=== PATIENT | male | born 1995 | race Caucasian/White ===

== ENCOUNTER 2017-07-15 16:42 | Emergency (ER) | payer OTHER ==
[2017-07-15 16:47] VITALS: BP 147/80
[2017-07-15] MEDS ORDERED: ONDANSETRON 4 MG TAB.RAPDIS PO ONE (16:56)
[2017-07-15] MEDS ORDERED: OXYCODONE-ACETAMINOPHEN 5-325 MG TABLET PO ONE (16:56)
--- NOTE | 2017-07-15 16:57 | ER Document Report ---
ED Medical Screen (RME) - General Chief Complaint: Crush Injury Stated Complaint: FINGER INJURY Time Seen by Provider: 07/15/17 16:52 Notes: 22-year-old male patient had his right finger tip smashed between free weights while lifting weights with a friend. Fingertip is split open. I have greeted and performed a rapid initial assessment of this patient. A comprehensive ED assessment and evaluation of the patient, analysis of test results and completion of the medical decision making process will be conducted by additional ED providers. TRAVEL OUTSIDE OF THE [place] IN LAST 30 DAYS: No - Related Data Allergies/Adverse Reactions: No Known Allergies Allergy (Verified 07/15/17 16:43) Physical Exam - Vital signs Vitals: Temp Pulse Resp BP Pulse Ox 97.7 F 81 16 147/80 H 100 07/15/17 16:46 07/15/17 16:46 07/15/17 16:46 07/15/17 16:46 07/15/17 16:46 Course - Vital Signs Vital signs: Temp Pulse Resp BP Pulse Ox 97.7 F 81 16 147/80 H 100 07/15/17 16:46 07/15/17 16:46 07/15/17 16:46 07/15/17 16:46 07/15/17 16:46
--- NOTE | 2017-07-15 17:18 | RADIOLOGY REPORT (SQ) ---
EXAM DESCRIPTION: FINGER RIGHT COMPLETED DATE/TIME: 07/15/2017 5:10 pm REASON FOR STUDY: crush injury COMPARISON: None. NUMBER OF VIEWS: Three views. TECHNIQUE: AP, lateral, and oblique images acquired of the right third finger. LIMITATIONS: None. FINDINGS: MINERALIZATION: Normal. BONES: There is a comminuted fracture of the distal phalanx of the 3rd digit. SOFT TISSUES: No soft tissue swelling. No foreign body. OTHER: No other significant finding. IMPRESSION: Comminuted fracture of the 3rd distal phalanx. COMMENT: SITE OF TRAUMA/COMPLAINT MARKED/STAMP COMPLETED: Yes TECHNICAL DOCUMENTATION: JOB ID: [id number] [employer]- All Rights Reserved Reading location - IP/workstation name: [email or web address]
[2017-07-15] MEDS ORDERED: LIDOCAINE 1% INJ-PF (10 MG/ML) 30 ML SDV INJ ONE (17:31)
[2017-07-15] MEDS ORDERED: CEPHALEXIN 500 MG CAPSULE PO ONE (17:33)
--- NOTE | 2017-07-15 17:34 | ER Document Report ---
ED General - General Chief Complaint: Crush Injury Stated Complaint: FINGER INJURY Time Seen by Provider: 07/15/17 16:52 Notes: 22-year-old male to the emergency department after dropping a weight at the gym on this middle finger on his right dominant hand. Open laceration to the distal tip of the right third digit on the hand. Significant amount of pain. Moderate amount of bleeding. No other injuries. Date on shots and immunizations including tetanus. TRAVEL OUTSIDE OF THE [place] IN LAST 30 DAYS: No - HPI Onset: Just prior to arrival Onset/Duration: Sudden Quality of pain: Throbbing Severity: Moderate Pain Level: 3 Associated symptoms: None - Related Data Allergies/Adverse Reactions: No Known Allergies Allergy (Verified 07/15/17 16:43) Past Medical History - General Information source: Patient - Social History Smoking Status: Never Smoker Chew tobacco use (# tins/day): No Frequency of alcohol use: None Drug Abuse: None Lives with: Alone Family History: Reviewed & Not Pertinent Patient has suicidal ideation: No Patient has homicidal ideation: No Renal/ Medical History: Denies: Hx Peritoneal Dialysis Review of Systems - Review of Systems Constitutional: No symptoms reported EENT: No symptoms reported Cardiovascular: No symptoms reported Respiratory: No symptoms reported Gastrointestinal: No symptoms reported Musculoskeletal: See HPI, Other - Finger pain, laceration, throbbing Skin: Other - Laceration to the third digit on the right hand with small amount of bleeding. Physical Exam - Vital signs Vitals: Temp Pulse Resp BP Pulse Ox 97.7 F 81 16 147/80 H 100 07/15/17 16:46 07/15/17 16:46 07/15/17 16:46 07/15/17 16:46 07/15/17 16:46 Interpretation: Normal - General General appearance: Appears well, Alert - Respiratory Respiratory status: No respiratory distress Chest status: Nontender Breath sounds: Normal Chest palpation: Normal - Cardiovascular Rhythm: Regular Heart sounds: Normal auscultation Murmur: No - Abdominal Inspection: Normal - Extremities General upper extremity: Other - Third digit on the right hand with almost complete amputation of the distal tip of the third digit. There is exposed bone. Involvement of the nailbed. There is a 3 cm laceration third digit right hand. Sensation intact. Neurovascularly intact General lower extremity: Normal inspection, Nontender, Normal color, Normal ROM , Normal temperature, Normal weight bearing. No: Bryanna's sign - Neurological Sensory: Normal - Skin Skin Temperature: Warm Skin Moisture: Dry Skin Color: Other - The distal phalanx on digit #3 on the right hand with crush injury and open laceration 3.0 cm in length. Neurovascularly intact. Subungual hematoma present Course - Re-evaluation Re-evalutation: 07/15/17 17:38 X-ray reveals comminuted fracture. Obviously open. Will give antibiotics. Do digital block and closure. Will attempt to 07/15/17 18:[address] Foster at [facility]. Will see patient in the morning. Laceration repaired. Antibiotics given. Pain medication given. Please see procedure note. Will DC at this time. - Vital Signs Vital signs: Temp Pulse Resp BP Pulse Ox 97.7 F 81 16 147/80 H 100 07/15/17 16:46 07/15/17 16:46 07/15/17 16:46 07/15/17 16:46 07/15/17 16:46 Procedures - Laceration/Wound Repair Right 3rd digit Wound length (cm): 3 Wound's Depth, Shape: Into muscle, Irregular, Nail-avulsed Laceration pre-procedure: Betadine prep applied, Chloraprep applied Anesthetic type: 1% Lidocaine Volume Anesthetic (mLs): 10 Wound explored: Clean, No foreign body removed Irrigated w/ Saline (mLs): 1,000 Wound Repaired With: Sutures, Other - 5-0 Vicryl used for deep closure and closure of the nailbed x4. x10 4-0 Prolene was used to close the skin. Splint placed. Suture Size/Type: 4:0, Prolene Number of Sutures: 14 Number Deep Layer Sutures: 4 Post-procedure wound care: Sterile dressing applied, Splint applied Discharge - Discharge Clinical Impression: Finger fracture, right Qualifiers: Encounter type: initial encounter Finger: middle finger Fracture type: open Phalanx: distal Fracture alignment: displaced Qualified Code(s): S62.632B - Displaced fracture of distal phalanx of right middle finger, initial encounter for open fracture Condition: Good Disposition: HOME, SELF-CARE Instructions: Open Finger Tuft Fracture ([facility]) Additional Instructions: Please follow-up with Dr. Foster at orthopedic clinic at [facility] tomorrow at 0 [phone]. Keep wound clean and dry. Antibiotics as prescribed. Pain medication as prescribed. Return for any worsening symptoms or concerns. Sutures will need to be removed in 10-14 days.. No use of the hand until cleared by orthopedic surgery. Prescriptions: Cephalexin Monohydrate [Keflex 500 mg Capsule] 500 mg PO Q6H 5 Days capsule Hydrocodone/Acetaminophen [[place] 5-325 mg Tabs (6 Tab/ER Disp)] 1 tab PO Q6H PRN 1 Days #1 dspk PRN Reason: Pain Scale Of 3
[2017-07-15] MEDS ORDERED: HYDROCODONE/ACETAMINOPHEN 5-325 MG (6 TAB/ER DISP) PO PRN (18:59)
== END 2017-07-15 19:10 | disposition home or self-care (01) ==
LOC: ER 16:42
PROC: 0HQFXZZ Repair Right Hand Skin, External Approach (ICD-10-PCS; principal; 2017-07-15)
DX: S62.632B Displaced fracture of distal phalanx of right middle finger, initial encounter for open fracture (principal); W22.8XXA Striking against or struck by other objects, initial encounter; Y93.B3 Activity, free weights
CPT/HCPCS: 99283; 73140; 12042; S0119